=== PATIENT | female | born 1965 | race Caucasian/White ===

== ENCOUNTER 2020-04-01 10:58 | Outpatient (CLI) | payer OTHER, SELFPAY ==
--- NOTE | ~2020-04-01 | US_ITS ---
EXAMINATION: US soft tissue abdomen DATE: 04/01/2020 11:34 INDICATION: Left abdominal mass. TECHNIQUE: Multiple grayscale and Doppler ultrasound images of the abdomen were obtained. COMPARISON: CT abdomen and pelvis 11/26/2018 FINDINGS: There are 2.1 cm and 3.0 cm subcutaneous masses in left abdomen that demonstrate echogenici ty and echotexture equal to normal subcutaneous fat. IMPRESSION: 1. Subcutaneous masses in left abdomen, most likely lipomas or inflammation. Reviewed, dictated and finalized at location A.
== END 2020-04-01 10:59 | disposition home or self-care (01) ==
PROVIDERS: PCP Internal Medicine; Visit Provider Clinical Nurse Specialist
DX: R19.00 Intra-abdominal and pelvic swelling, mass and lump, unspecified site (principal)
CPT/HCPCS: 76705

== ENCOUNTER 2020-06-30 14:00 | Outpatient (CLI) | payer OTHER, SELFPAY ==
--- NOTE | ~2020-06-30 | XR_ITS ---
EXAMINATION: XR knee LT 2V DATE: 06/30/2020 14:26 INDICATION: Left knee pain. TECHNIQUE: 2 views of left knee were obtained. COMPARISON: None. FINDINGS: Bone alignment is normal. No fracture. There is mild tricompartmental osteoarthritis. There is a small knee joint effusion. IMPRESSION: 1. Mild left knee osteoarthritis. 2. Small left knee joint effusion. Reviewed, dictated and finalized at location A.
== END 2020-06-30 14:01 | disposition home or self-care (01) ==
LOC: ANHIMG 14:13
PROVIDERS: PCP Internal Medicine; Visit Provider Nurse Practitioner
DX: M25.569 Pain in unspecified knee (principal); M17.12 Unilateral primary osteoarthritis, left knee; M25.462 Effusion, left knee
CPT/HCPCS: 73560

== ENCOUNTER 2021-07-19 08:47 | Outpatient (CLI) | payer OTHER, SELFPAY ==
--- NOTE | ~2021-07-19 | MR_ITS ---
EXAMINATION: MR knee LT wo con DATE: 07/19/2021 09:47 INDICATION: Severe medial left knee pain TECHNIQUE: Magnetic resonance imaging (MRI) of the left knee was performed without intravenous contra st. Sequences included coronal PD-weighted FSE, coronal PD-weighted FS FSE, sagittal T2-weighted FSE , sagittal PD-weighted FS FSE and axial PD weighted fat saturated FSE. COMPARISON: None. FINDINGS: Medial compartment: There is a longitudinal horizontal tear extending to the inferior articular surface of the body and p osterior horn of the medial meniscus. The dorsal meniscus inferior to the tear plane at the meniscal body is subluxed inferiorly into the gutter along the medial rim of the medial tibial plateau. There is suggestion of the likely secondary radial tear along the at the meniscal body involving the cephal ad portion of the meniscus which is not subluxed. Partial-thickness chondral fissuring involving up t o 50% the cartilage thickness at the anterior weightbearing medial femoral condyle. Deeper chondral u lceration involving greater than 50% the cartilage thickness with chondral surface regularity at the central to posterior weightbearing medial femoral condyle and at the central aspect of the medial tib ial plateau. No degenerative subchondral changes. Lateral compartment: Longitudinal horizontal tear extending towards the free edge of the lateral meniscal body into the barillas perior articular surface at the junction of the anterior horn and body. Partial-thickness chondral fi ssuring involving up to 50% the cartilage thickness along the medial rim of the central weightbearing lateral femoral condyle. Partial thickness chondral ulceration with mild chondral surface regularity along the medial half of the medial tibial plateau including along the shoulder the intercondylar em inence along the juxtaposed medial side of the anterior weightbearing medial femoral condyle. Partial -thickness chondral fissuring at the posterior aspect of the lateral tibial plateau. Patellofemoral compartment: Extensive with chondral ulceration involving greater than 50% the cartilage thickness along the later al patellar facet and apical ridge and along the lateral half of the lateral trochlea with few scatte red tiny foci of subarticular edema. Less severe partial thickness chondral ulceration with chondral surface irregularity at the medial talar facet, medial trochlea and trochlear groove. Large marginal osteophytes along the medial trochlea. Ligaments and tendons: Anterior and posterior cruciate ligaments are normal. There is mild thickening of the proximal medial collateral ligament without surrounding edema consistent with mild scarring related to chronic sprai n. Mild patellar tendinopathy with small enthesophyte at its patellar insertion. Mild tendinopathy wi thout discrete tear of the distal semimembranosus tendon. There is diffuse mild fatty atrophy of the more proximal semimembranosus muscle belly. The visualized medial and lateral hamstring tendons as we ll as the iliotibial band are otherwise normal. Fluid: Small joint effusion with mild synovitis at the suprapatellar pouch. Small to moderate-sized Kelly's cyst. No loose osteochondral bodies identified. Osseous/other: Bone alignment is normal. There is some red marrow reexpansion in the metadiaphyseal regions of the f emur, tibia and fibula. No fracture or pathologic marrow replacing process. IMPRESSION: 1. Medial and lateral meniscal tears, more extensive and likely complex at the medial meniscus. 2. Mild to moderate tricompartmental osteoarthritis with medial and patellofemoral compartment predom inance. 3. Likely mild scarring likely related to chronic sprain of the proximal medial collateral ligament. 4. Mild patellar and semimembranosus tendinopathy without discrete tears. 5. Small left knee joint effusion and small to moderate s
== END 2021-07-19 08:48 | disposition home or self-care (01) ==
PROVIDERS: PCP Internal Medicine; Visit Provider Orthopaedic Surgery
DX: S83.282A Other tear of lateral meniscus, current injury, left knee, initial encounter (principal); S83.242A Other tear of medial meniscus, current injury, left knee, initial encounter; M17.12 Unilateral primary osteoarthritis, left knee; M71.22 Synovial cyst of popliteal space [Baker], left knee
CPT/HCPCS: 73721

== ENCOUNTER 2021-11-14 09:41 | Emergency (ER) | payer BC, SELFPAY ==
--- NOTE | ~2021-11-14 | XR_ITS ---
EXAMINATION: XR chest 1V portable DATE: 11/14/2021 12:24 INDICATION: COVID positive presenting with shortness of breath, cough and chest tightness TECHNIQUE: frontal view of the chest was obtained. COMPARISON: None FINDINGS: The lungs are clear with no focal airspace opacities, pulmonary edema, pleural effusion or pneumothor ax. The cardiomediastinal silhouette is normal. Moderate degenerative skeletal changes in the thoraci c spine and bilateral acromioclavicular joints. IMPRESSION: 1. No acute cardiopulmonary disease. Reviewed, dictated and finalized at location A. 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
[2021-11-14 09:43] VITALS: BP 151/62; PULSE 74; RESP 20; TEMP 36.6; O2SAT 99
[2021-11-14 11:21] VITALS: BP 139/82; O2SAT 98
[2021-11-14 11:23] VITALS: BP 139/82; PULSE 68; RESP 20; TEMP 36.7; O2SAT 98
[2021-11-14 11:31] VITALS: BP 128/70; O2SAT 96
--- NOTE | 2021-11-14 11:38 | ED.GENADULT ---
HPI - General Adult General Chief complaint: Upper Respiratory Infection Stated complaint: covid Time Seen by Provider: 11/14/21 11:37 History of Present Illness HPI narrative: Patient is a 56-year-old female who comes into the ED today complaining of chest pain and diffuse back pain. Patient reports she has been having intermittent chest pressure for the last 2 days, worse with coughing and worse with lying down. Constant diffuse back pain. Has been having fevers for the last 3 days along with a headache. Admits to a cough. She was seen in urgent care yesterday was diagnosed with pneumonia on chest x-ray, was tested for COVID-19 and that came back positive this morning. She is COVID-19 vaccinated. She received her booster dose last week. Has a history of diabetes and hypertension. Took ibuprofen about 3 hours prior to arrival because she had a fever of 102. Related Data Allergies Allergy/AdvReac Type Severity Reaction Status Date / Time metformin Allergy Unknown Unknown Verified 08/15/21 09:04 Penicillins Allergy Unknown Hives Verified 08/15/21 09:04 sitagliptin Allergy Unknown Unknown Verified 08/15/21 09:04 empagliflozin Allergy Unknown Verified 08/15/21 09:04 [From Jardiance] Review of Systems Constitutional: Constitutional: Reports as per HPI, Reports fever(s), Denies night sweats and Denies weakness Cardiovascular: Cardiovascular: Reports chest pain, Denies edema, Denies leg edema, Denies dyspnea and Denies orthopnea Respiratory: Respiratory: Denies cough and Denies dyspnea Gastrointestinal: Gastrointestinal: Denies abdominal pain, Denies constipation, Denies diarrhea, Denies nausea and Denies vomiting Musculoskeletal: Musculoskeletal: Denies abnormal gait, Reports back pain, Denies numbness and Denies tingling Comments: See HPI for back pain Neurologic: Denies Abnormal speech present, Denies abnormal gait, Denies numbness, Denies tingling and Denies weakness Psychiatric: Psychiatric: Denies homicidal ideation and Denies suicidal ideation [facility] Past Medical History Medical History Hyperlipidemia Hypertension Major depressive disorder Type 2 diabetes mellitus Surgical History Surgical History H/O lateral meniscus repair of left knee H/O: hysterectomy History of appendectomy History of hernia repair History of knee replacement Right Social History Social History (Updated 08/15/21 @ 09:09 by Merari Danielson) Social History: Caffeine- diet coke,nicholas Smoking status: Never smoker Alcohol intake: never Exam Const: General: cooperative, healthy appearing, comfortable, no acute distress, well developed, alert, awake and Physically active Orientation/consciousness: patient oriented x3 HENMT: Head: normal to inspection, normocephalic and atraumatic Ears: external ears normal General nose exam: Normal external nose present Eyes: Pupils: Equal, round and reactive pupils present EOM: EOMs intact bilaterally Neck: Neck: normal visual inspection Chest: Chest palpation & inspection: normal inspection of the chest and no tenderness Other: Tenderness palpation over midsternal aspect of chest Resp: Effort & Inspection: normal respiratory effort and able to speak in complete sentences Auscultation: clear to auscultation bilaterally Cardio: Rate: regular rate Rhythm: regular rhythm GI: Inspection: normal to inspection GI Palp: No abdominal tenderness : General: Yes no CVA tenderness Back/Spine/Pelvis: Back: no CVA tenderness Other: Tender to palpate diffusely over entire back. No overlying skin changes. Neurovascular intact throughout. Skin: General skin exam: normal color and no rashes or lesions noted Lesions: no lesions Neuro: General: patient oriented x3, no focal motor deficits and CN's II-XI intact bilaterally Cranial nerves: Yes Equal, round and reactive pupils present Spee
--- NOTE | 2021-11-14 12:06 | ECG_ITS ---
Rate 66 LA 179 QRSd 84 QT 427 QTc 449 --[place]-- P 0 QRS -18 T 30 SINUS RHYTHM NORMAL ECG Electronically Signed On 11-14-2021 13:43:36 MEDICAL COLLECTOR by Mor AN
[2021-11-14 12:33] LABS: Basophils Percent Auto 0.6 % (0.2-1.2); Eosinophils Percent Auto 0.8 % (0-4.4); Hematocrit 37.1 % (37.0-47.0); Hemoglobin 12.6 g/dL (12.0-15.0); Immature Granulocyte Absolute 0.06 K/mm3 (0.00-0.031); Immature Granulocyte Percent A 1.1 % (0-0.5); Lymphocytes Absolute Auto 1.87 K/mm3 (0.9-3.2); Lymphocytes Percent Auto 35.8 % (18.3-44.2); Mean Corpuscular Hemoglobin 28.7 pg (26-34); Mean Corpuscular Volume 84.5 fl (80-100); Mean Platelet Volume 9.2 fl (7.4-10.4); Monocytes Absolute Auto 0.6 K/mm3 (0.1-0.6); Monocytes Percent Auto 11.9 % (2.6-8.5); Neutrophils Absolute Auto 2.6 K/mm3 (1.3-6.7); Neutrophils Percent Auto 49.8 % (45.5-73.1); Platelet Count Result 235 k/mm3 (150-375); Red Blood Count 4.39 M/mm3 (4.2-5.4); Red Cell Distribution Width 13.1 % (11.5-14.5); White Blood Count 5.2 K/mm3 (4.5-10.0)
[2021-11-14] MEDS: ACETAMINOPHEN 500 MG TABLET 1000 MG PO (12:37)
[2021-11-14 12:43] LABS: Alanine Aminotransferase 44 U/L (4-35); Albumin Level 4.2 g/dL (3.5-5.1); Alkaline Phosphatase 74 U/L (38-126); Anion Gap 9 mmol/L (8-16); Aspartate Amino Transferase 34 U/L (14-36); Bilirubin,Total 0.5 mg/dL (0.2-1.3); Blood Urea Nitrogen 8 mg/dL (7-17); Calcium 9.2 mg/dL (8.4-10.2); Carbon Dioxide 26 mmol/L (22-30); Chloride 101 mmol/L (98-107); Estimated CRCL calculation 211 ml/min; Estimated Glomerular Filt Rate > 60; Glucose 204 mg/dL (65-110); Potassium 3.6 mmol/L (3.4-5.0); Sodium 136 mmol/L (137-145)
[2021-11-14 12:54] LABS: Troponin I < 0.012 ng/mL (0.000-0.034)
[2021-11-14 13:10] VITALS: PULSE 66; RESP 18; O2SAT 98
[2021-11-14 13:31] VITALS: BP 131/70; PULSE 68; RESP 18; TEMP 36.7; O2SAT 97
== END 2021-11-14 13:32 | disposition home or self-care (01) ==
PROVIDERS: Physician Assistant Medical; Emergency Provider Emergency Medicine; PCP Internal Medicine
DX: U07.1 COVID-19 (principal); R07.89 Other chest pain; E11.9 Type 2 diabetes mellitus without complications; I10 Essential (primary) hypertension; E78.5 Hyperlipidemia, unspecified; Z96.651 Presence of right artificial knee joint; Z79.4 Long term (current) use of insulin; Z79.84 Long term (current) use of oral hypoglycemic drugs
CPT/HCPCS: 36415; 71045; 80053; 84484; 85025; 93005; 99284; A9270

== ENCOUNTER 2022-05-15 17:36 | Emergency (ER) | payer OTHER, BC, SELFPAY ==
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
[2022-05-15 17:36] VITALS: BP 166/103; PULSE 86; RESP 16; TEMP 36.8; O2SAT 99
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
[2022-05-15] MEDS: ONDANSETRON INJ 4 MG/2 ML VIAL IV PUSH (19:12)
[2022-05-15] MEDS: HYDROmorphone HCL INJ (*CRX) 1 MG/ML SYR 0.5 MG IV PUSH (19:14)
[2022-05-15 19:30] VITALS: BP 159/78; PULSE 75; RESP 18; O2SAT 96
== END 2022-05-15 19:50 | disposition short-term general hospital (02) ==
PROVIDERS: Emergency Provider Emergency Medicine; PCP Internal Medicine
DX: S29.9XXA Unspecified injury of thorax, initial encounter (principal); S39.91XA Unspecified injury of abdomen, initial encounter; E78.5 Hyperlipidemia, unspecified; I10 Essential (primary) hypertension; E11.9 Type 2 diabetes mellitus without complications; E66.9 Obesity, unspecified; Z68.34 Body mass index [BMI] 34.0-34.9, adult; Z96.651 Presence of right artificial knee joint; Z79.4 Long term (current) use of insulin; Z79.84 Long term (current) use of oral hypoglycemic drugs; Z79.899 Other long term (current) drug therapy; V43.52XA Car driver injured in collision with other type car in traffic accident, initial encounter
CPT/HCPCS: 71045; 72170; 96374; 96375; 99285; J1170; J2405; L0140

== ENCOUNTER 2022-11-13 13:32 | Outpatient (CLI) | payer BC, SELFPAY ==
[2022-11-13 14:09] LABS: Kit Draw Collected
== END 2022-11-13 13:33 | disposition home or self-care (01) ==
LOC: ANHGOSHLAB 13:34
PROVIDERS: PCP Internal Medicine; Visit Provider Nurse Practitioner
DX: E11.9 Type 2 diabetes mellitus without complications (principal); I10 Essential (primary) hypertension; E55.9 Vitamin D deficiency, unspecified
CPT/HCPCS: 36415

== ENCOUNTER 2022-11-13 14:23 | Outpatient (CLI) | payer BC, SELFPAY ==
--- NOTE | ~2022-11-13 | CT_ITS ---
EXAMINATION: CT knee LT w con DATE: 11/13/2022 15:01 INDICATION: Chronic swelling and severe pain TECHNIQUE: Computed tomography (CT) of the left knee was performed with 100 mL Omnipaque 350 intraven ous contrast. Automated exposure control and iterative reconstruction technique were employed. The do se-length product was 602.93 mGy-cm. COMPARISON: None, prior examinations were prior to arthroplasty. FINDINGS: Hardware: Left knee total arthroplasty, no hardware fracture or perihardware lucency. Bones: The included osseous structures are within normal limits. There are no erosive or destructive bony lesions. No osseous fracture. Soft Tissues: The soft tissues appear within normal limits. No evidence of mass or fluid collection. Fluid: Moderate volume fluid within the suprapatellar recess, with irregular thickening and enhanceme nt of the synovium. IMPRESSION: Moderate volume knee joint effusion with synovitis. The sterility of this fluid cannot be assessed by imaging alone. No acute osseous finding. No radiographic evidence of hardware-related complication. Reviewed, dictated and finalized at location K. EDMAN/LABORER
[2022-11-13 15:00] LABS: Estimated Glomerular Filt Rate > 60
== END 2022-11-13 14:24 | disposition home or self-care (01) ==
PROVIDERS: PCP Internal Medicine; Visit Provider Internal Medicine
DX: M25.562 Pain in left knee (principal); M25.462 Effusion, left knee; Z96.652 Presence of left artificial knee joint
CPT/HCPCS: 73701; Q9967

== ENCOUNTER 2022-12-05 11:58 | Outpatient (CLI) | payer BC, SELFPAY ==
--- NOTE | ~2022-12-05 | US_ITS ---
EXAMINATION: US venous doppler [facility] DATE: 12/05/2022 12:42 INDICATION: Left lower limb pain TECHNIQUE: Hassan scale images without and with compression and Doppler images of the left lower extrem ity veins were obtained. COMPARISON: None FINDINGS: The left common femoral vein, profunda femoral vein, femoral vein, popliteal vein, peroneal trunk, posterior tibial veins, and greater saphenous vein are patent. IMPRESSION: 1. Patent left lower extremity veins. No evidence of deep venous thrombosis. Reviewed, dictated and finalized at location L. CHECKER
== END 2022-12-05 11:59 | disposition home or self-care (01) ==
PROVIDERS: PCP Internal Medicine; Visit Provider Internal Medicine
DX: M79.605 Pain in left leg (principal); M79.89 Other specified soft tissue disorders; Z96.652 Presence of left artificial knee joint
CPT/HCPCS: 93971

== ENCOUNTER 2023-03-29 11:48 | Outpatient (CLI) | payer OTHER, SELFPAY ==
--- NOTE | ~2023-03-29 | MMUS_ITS ---
EXAMINATION: MM diagnostic shoaib BI w maryam, US breast RT limited HISTORY: Upper inner quadrant right breast lump and right axillary pain TECHNIQUE: Bilateral full field and right spot ML, MLO and CC 3-D tomosynthesis images were performed and synthetic 2-D images were generated. CAD analysis was submitted and interpreted. High resolution upper inner quadrant right breast and right axillary ultrasound was performed. COMPARISON: 10/04/2016 bilateral diagnostic mammogram BREAST PARENCHYMAL COMPOSITION: The breasts are almost entirely fatty. FINDINGS: MAMMOGRAPHIC FINDINGS: No suspicious mass or architectural distortion, malignant calcification, skin thickening or retractio n or significant new or developing density is detected. Small stable benign-appearing intramammary ly mph node in the very posterior upper outer right breast. There is adipose tissue in the region of complaint of lump in the upper inner quadrant of the right b reast. ULTRASOUND: Right breast 1:00 10 cm from nipple: There is a parallel circumscribed heterogeneous mixed isodense a nd primarily hyperdense benign-appearing lesion without internal vascularity or posterior shadowing a t 1:00 10 cm from the nipple. There is some through-transmission. Differential diagnosis includes lip carlitos, less likely hamartoma. No suspicious mass or shadowing is detected in the right axilla. IMPRESSION: 1. Benign findings 2. Routine annual mammographic screening is recommended BI-RADS Category 2: Benign finding(s). Reviewed, dictated and finalized at location A. IMPRESSION: 1. Benign findings 2. Routine annual mammographic screening is recommended BI-RADS Category 2: Benign finding(s).
== END 2023-03-29 11:49 | disposition home or self-care (01) ==
PROVIDERS: PCP Internal Medicine; Visit Provider Nurse Practitioner
DX: N63.0 Unspecified lump in unspecified breast (principal)
CPT/HCPCS: 76642; 77062; 77066; G0279

== ENCOUNTER 2023-05-23 09:13 | Outpatient (CLI) | payer OTHER, SELFPAY ==
[2023-05-23 10:04] LABS: Anion Gap 5 mmol/L (8-16); Blood Urea Nitrogen 10 mg/dL (7-17); Calcium 9.4 mg/dL (8.4-10.2); Carbon Dioxide 32 mmol/L (22-30); Chloride 100 mmol/L (98-107); Estimated Glomerular Filt Rate > 60; Glucose 171 mg/dL (65-110); Potassium 4.3 mmol/L (3.4-5.0); Sodium 137 mmol/L (137-145)
== END 2023-05-23 09:14 | disposition home or self-care (01) ==
PROVIDERS: Anesthesiology; PCP Internal Medicine; Visit Provider Surgery
DX: E11.9 Type 2 diabetes mellitus without complications (principal)
CPT/HCPCS: 36415; 80048

== ENCOUNTER 2023-05-28 00:25 | Day surgery (SDC) | payer OTHER, SELFPAY ==
[2023-05-21 12:48] VITALS: BMI 34.5
--- NOTE | 2023-05-21 12:49 | SUR.PREOP ---
Report to the Outpatient Waiting Room, entrance under the green pavilion located off [facility], at time _1130 on date _05/28/23 . Planned Procedure Time: _1.30pm . Time changes happen often and if your time is changed the preop area will call you the afternoon before. - You and your visitor will be asked to self-screen and do not enter if you have any COVID symptoms. - A mask is optional within the hospital at this time. Patients may have clear liquids (water, carbonated beverages, clear teas, apple juice) until 3 hours prior to surgery with a maximum of 20 ounces. - No food from midnight until time of surgery - Infants may have breast milk until 4 hours before surgery, infant formula 6 hours prior to surgery. - Children will be allowed to drink immediately following surgery. If applicable, please bring a bottle or sippy cup to assist with drinking. Juice, water, soda, and popsicles are readily available. For infants on formula, please bring formula the day of surgery. Pacifiers are allowed. Take the following medications with a SIP of water the morning of surgery: __LABETOLOL,SERTALINE DO NOT STOP ANY OF YOUR OTHER PRESCRIPTION MEDICATIONS PRIOR TO SURGERY ?EXCEPT THE FOLLOWING Medications to discontinue per physician __N/A Date to take last dose__N/A Please no make-up, nail turkmen, hairspray, perfume, deodorant, or body powder the day of surgery. No jewelry (including any body piercings) or valuables the day of surgery, leave them at home. Please take a shower or bath the night before, or the morning of, surgery with an antibacterial soap. Wear comfortable, loose fitting clothing. Children are encouraged to wear pajamas. - Jewelry must be removed prior to entering the operating room. Rings and piercings that are not removed may be cut off. - The hospital will not accept responsibility for valuables. - Please leave all valuables, including medications, at home the day of surgery. If you are going home after surgery, a licensed city route driver must drive you home. - NO public transportation without another adult if you receive anesthesia. - We recommend that an adult stay with you for 24 hours following discharge. - We also recommend that you do not drive, make important decision, drink alcoholic beverages, or take any drugs that were not prescribed by your health care provider for at least 24 hours after your discharge time. For Pediatric surgeries, we recommend two adults accompany the child home. Follow any additional instructions given to you from your surgeon. If you or anyone in your household have experienced Covid symptoms in the past week, please notify your surgeon or the nurse liaison at the phone number below for possible testing. Telephone instructions given to _DORIAN YU and asked if any additional questions and then verbalized understanding. Patient advised to call surgeon office or pre surgery nurse liaison [phone] if any additional questions.
[2023-05-28] VITALS (10 sets, daily range): BP systolic 95–158; BP diastolic 53–84; PULSE 43–62; RESP 10–18; TEMP 36.6–36.8; O2SAT 92–100
--- NOTE | 2023-05-28 09:11 | WPDANESEPPF ---
Anes - Initial Pre Proc Eval Procedure: Operation Date: 05/28/23 13:30 Proposed Procedures p Excision Right Breast Cyst - Pee Bundy DO Date/Time: 05/28/23 09:11 Surgeon: Pee Bundy DO Pre Op Diagnosis: right breast cyst 1.5cm Patient Data Age: 58 Gender: F Height: 1.7 m Weight: 100 kg Allergies Allergy/AdvReac Type Severity Reaction Status Date / Time metformin Allergy Intermediate Other Verified 05/28/23 11:41 Penicillins Allergy Intermediate Hives Verified 05/28/23 11:41 sitagliptin Allergy Intermediate Rash Verified 05/28/23 11:41 empagliflozin AdvReac Mild Diarrhea Verified 05/28/23 11:44 [From Jardiance] Home Medications Medication Instructions Recorded Confirmed Type hydrochlorothiazide 25 mg tablet See Rx Instructions .Route 05/18/22 05/28/23 Rx .COMPLEX #90 tabs glimepiride 4 mg tablet 4 mg PO BID #180 tabs 01/12/23 05/28/23 Rx labetalol 100 mg tablet See Rx Instructions .Route 01/12/23 05/28/23 Rx .COMPLEX #180 tabs lisinopril 40 mg tablet 40 mg PO DAILY #90 tabs 01/12/23 05/28/23 Rx simvastatin 40 mg tablet See Rx Instructions .Route 01/12/23 05/28/23 Rx .COMPLEX #90 tabs dulaglutide 0.75 mg/0.5 mL 0.75 mg (0.5 mL) subcut WEEKLY #2 03/02/23 05/28/23 Rx subcutaneous pen injector mL (Trulicity) sertraline 100 mg tablet See Rx Instructions .Route 03/02/23 05/28/23 Rx .COMPLEX #90 tabs Patient hx anesthesia problems: none Family hx anesthesia problems: none Results Review: All pre-operative results and documents have been reviewed as part of the pre-operative evaluation. [facility] Past Medical History Medical History Hyperlipidemia Hypertension Major depressive disorder Obesity Type 2 diabetes mellitus Surgical History Surgical History H/O lateral meniscus repair of left knee H/O: hysterectomy History of appendectomy History of hernia repair History of knee replacement Right History of total left knee replacement Social History Social History Social History: Caffeine- diet nicholas sloan Smoking status: Never smoker Alcohol intake: never Lack of Transportation: No Lack of Food: Never True Current Housing: I Have Housing Concerned About Future Housing: No Difficulty Paying Gas/Electric Bills: No Difficulty Paying for Meds: No Currently Unemployed: No Education: High School Diploma/GED Difficulty w/ Childcare or Family Care: No Living arrangements: with family Spiritual care concerns: No Anes - Eval Final PreProcedure Day of Procedure 05/28/23 09:11 Patient weight: obese Heart: regular rate and rhythm Lungs: clear to auscultation Airway: Mallampati scale class II Neurological: alert and oriented Last oral intake: >/= 8 hours ASA classification: III Emergent: no Anesthetic plan: proceed Anesthesia type and monitoring: general GIVS and standard monitoring Results Review: All pre-operative results and documents have been reviewed as part of the pre-operative evaluation. Informed Consent: The patient's anesthetic plan and its attendant risks and benefits were discussed with the patient/family/POA. Questions were solicited and answers provided to the satisfaction of the patient/family/POA.
[2023-05-28] MEDS: ACETAMINOPHEN 500 MG TABLET 1000 MG PO (12:19)
[2023-05-28] MEDS: LACTATED RINGERS 1,000 ML 30 ML IV CONT ×2 (12:19→13:45)
[2023-05-28] MEDS: KETOROLAC 15 MG/ML VIAL (*BKC) IV PUSH (12:21)
[2023-05-28 12:28] LABS: Glucose Point of Care 171 mg/dl (65-105)
--- NOTE | 2023-05-28 12:52 | WPDHPUPDATE1 ---
History and Physical Update Update Date/Time: 05/28/23 12:52 History and Physical has been reviewed, including an updated exam of the patient. There are NO changes in the patient's condition. Risks, benefits, and alternatives have been discussed and questions answered. Patient agrees to proceed with procedure.
--- NOTE | 2023-05-28 13:34 | W.PM.PROC2 ---
Procedure Note - Detailed Date of Procedure 05/28/23 Pre-op Diagnosis right breast mass Post-op Diagnosis Same Procedure Performed Excisional biopsy of 1.5 cm right breast mass Surgeon Pee Bundy, DO Anesthesia General and Local (0.5% bupivacaine with epinephrine) Indications This is a 58-year-old woman who presented with a painful right breast mass. The patient 1st noticed this a couple months ago. It was causing some burning across her upper chest and into her right axilla. She was sent for mammogram and ultrasound which came back as BI-RADS category 2 benign findings. The mass was mobile and firm and was likely a lipoma or cyst. I discussed treatment options with the patient and decision was made to proceed with excisional biopsy of the right breast mass. Findings Excisional biopsy was performed of the right breast mass in the upper inner quadrant. The mass was noted to have a lipomatous consistency. No other surrounding abnormalities were noted. The mass measured about 1.5 cm in diameter. It was completely excised and sent to the lab for pathology. Description of Procedure Procedure as well as risks, benefits, and alternatives were discussed with the patient. Written consent was obtained and placed in chart prior to procedure. Patient was brought back to surgical suite. She was placed supine on operating table. Time-out was done to confirm patient and procedure. She was intubated by the anesthesia department. Her right breast area was prepped and draped in sterile fashion using chlorhexidine prep. 0.5% bupivacaine with epinephrine was infiltrated locally around the mass. A 2 cm transverse incision was made directly over the mass using a 15 blade scalpel. Electrocautery was used for hemostasis and for dissection through the subcutaneous tissue. The mass was encountered and carefully dissected free from the surrounding tissue using electrocautery. It was completely excised and sent to the lab for pathology. The wound bed was then inspected. Hemostasis appeared adequate and no other masses were identified. The deep dermis was then reapproximated using 3-0 Vicryl inverted interrupted sutures. Skin was approximated using 4 Monocryl running subcuticular suture. Exofin glue was then applied on top. The patient was then awakened from anesthesia, extubated, and transferred to recovery. Estimated Blood Loss 5 Pathology Yes (Right upper inner quadrant breast mass) Complications No immediate complications Condition Stable Disposition Same day [facility] Billing Surgery - Charge Forward: Surgery Billing
[2023-05-28 13:46] LABS: Glucose Point of Care 147 mg/dl (65-105)
[2023-05-28] MEDS: fentaNYL CITRATE INJ (*CRX) 100 MCG/2 ML VIAL 25 MCG IV PUSH (14:27)
[2023-05-28] MEDS: oxyCODONE HCL (*CRX) 5 MG TAB IR PO (15:00)
== END 2023-05-28 15:55 | disposition home or self-care (01) ==
PROVIDERS: PCP Internal Medicine; Visit Provider Surgery
PROC: (CPT 19120; principal; 2023-05-28 13:30)
DX: D17.1 Benign lipomatous neoplasm of skin and subcutaneous tissue of trunk (principal); I10 Essential (primary) hypertension; E78.5 Hyperlipidemia, unspecified; E11.9 Type 2 diabetes mellitus without complications; F32.9 Major depressive disorder, single episode, unspecified; E66.9 Obesity, unspecified; Z68.35 Body mass index [BMI] 35.0-35.9, adult; Z79.84 Long term (current) use of oral hypoglycemic drugs; Z79.899 Other long term (current) drug therapy
CPT/HCPCS: 19120; 82948; 88304; 88305; A9270; J1100; J1885; J2250; J2405; J2704; J3010; J7120

== ENCOUNTER 2023-09-13 10:42 | Emergency (ER) | payer OTHER, SELFPAY ==
[2023-09-13 10:45] VITALS: BP 157/67; PULSE 82; RESP 16; TEMP 36.7; O2SAT 97
[2023-09-13 11:39] LABS: Basophils Percent Auto 0.3 % (0.2-1.2); Eosinophils Absolute Auto 0.2 K/mm3 (0-0.3); Hematocrit 43.8 % (37.0-47.0); Hemoglobin 14.4 g/dL (12.0-15.0); Immature Granulocyte Absolute 0.06 K/mm3 (0.00-0.031); Immature Granulocyte Percent A 0.7 % (0-0.5); Lymphocytes Absolute Auto 0.73 K/mm3 (0.9-3.2); Lymphocytes Percent Auto 8.1 % (18.3-44.2); Mean Corpuscular HGB Conc 32.9 g/dl (32-36); Mean Corpuscular Hemoglobin 27.1 pg (26-34); Mean Corpuscular Volume 82.5 fl (80-100); Mean Platelet Volume 9.4 fl (7.4-10.4); Monocytes Absolute Auto 0.6 K/mm3 (0.1-0.6); Monocytes Percent Auto 6.7 % (2.6-8.5); Neutrophils Absolute Auto 7.4 K/mm3 (1.3-6.7); Neutrophils Percent Auto 82.2 % (45.5-73.1); Platelet Count Result 308 k/mm3 (150-375); Red Blood Count 5.31 M/mm3 (4.2-5.4); Red Cell Distribution Width 13.8 % (11.5-14.5)
[2023-09-13 11:45] LABS: Appearance Urine Cloudy (Clear); Bacteria Urine 1+ /hpf; Bilirubin Urine Negative (Negative); Blood Urine Negative (Negative); Color Urine Yellow (Yellow); Glucose Urine UA Negative (Negative); Ketones Urine Negative (Negative); Leukocyte Esterase Ur 2+ LEU/UL (Negative); Nitrate Urine Negative (Negative); Non Pathogenic Casts 0-2; Protein Urine 1+ mg/dL (Negative); RBC Urine 0-2 /hpf (0-2); Specific Grav Ur 1.026 (1.001-1.035); Squamous Epithelial Cell Urine Many /hpf (Few); WBC Urine 21-50 /hpf
[2023-09-13 11:49] LABS: Alanine Aminotransferase 25 U/L (6-35); Albumin Level 4.6 g/dL (3.5-5.1); Alkaline Phosphatase 87 U/L (38-126); Anion Gap 11 mmol/L (8-16); Aspartate Amino Transferase 17 U/L (14-36); Bilirubin,Total 1.2 mg/dL (0.2-1.3); Blood Urea Nitrogen 14 mg/dL (7-17); Calcium 9.4 mg/dL (8.4-10.2); Carbon Dioxide 26 mmol/L (22-30); Chloride 100 mmol/L (98-107); Estimated CRCL calculation 156 ml/min; Estimated Glomerular Filt Rate > 60; Glucose 266 mg/dL (65-110); Lipase 88 U/L (23-300); Potassium 3.7 mmol/L (3.4-5.0); Sodium 137 mmol/L (137-145)
[2023-09-13 11:52] LABS: Add Urine Microscopic? YES
--- NOTE | 2023-09-13 12:22 | ED.GENADULT ---
HPI - General Adult General Chief complaint: Nausea/Vomiting/Diarrhea Stated complaint: N/V/D Time Seen by Provider: 09/13/23 11:23 Source: patient Mode of arrival: ambulatory Limitations: no limitations History of Present Illness HPI narrative: This is a 58-year-old female who presents to the ED with chief complaint of nausea vomiting x3 days. Reports that she had an episode of anaphylaxis on Sunday acquired epinephrine at urgent care. Since then she states she has had multiple episodes of vomiting and diarrhea with vomiting worse last night. Reports it is difficult to keep food down but she is able to keep water down if she sips. states she only has abdominal cramping / pain whenever she has the episodes of diarrhea. Denies fevers, chills, GI bleeding, urinary complaints. Related Data Allergies Allergy/AdvReac Type Severity Reaction Status Date / Time metformin Allergy Intermediate Other Verified 06/08/23 09:07 Penicillins Allergy Intermediate Hives Verified 06/08/23 09:07 sitagliptin Allergy Intermediate Rash Verified 06/08/23 09:07 pistachio nut Allergy Anaphylaxis Verified 09/13/23 10:43 empagliflozin AdvReac Mild Diarrhea Verified 06/08/23 09:07 [From Jardiance] Review of Systems Review of Systems: All systems as dictated in [facility] Past Medical History Medical History (Updated 09/13/23 @ 13:37 by Floyd Jackson PA-C) Hyperlipidemia Hypertension Major depressive disorder Obesity Type 2 diabetes mellitus Surgical History Surgical History (Updated 06/08/23 @ 09:06 by DEBRA Nguyen) H/O excision of dermoid cyst exc 1.5cm rt breast cyst performed 05/28/23 H/O lateral meniscus repair of left knee H/O: hysterectomy History of appendectomy History of hernia repair History of knee replacement Right History of total left knee replacement Social History Social History Social History: Caffeine- diet nicholas sloan Smoking status: Never smoker Alcohol intake: never Lack of Transportation: No Lack of Food: Never True Current Housing: I Have Housing Concerned About Future Housing: No Difficulty Paying Gas/Electric Bills: No Difficulty Paying for Meds: No Currently Unemployed: No Education: High School Diploma/GED Difficulty w/ Childcare or Family Care: No Living arrangements: with family Spiritual care concerns: No Exam Narrative: GENERAL: Well-appearing, well-nourished, and in no acute distress. HEAD: Normocephalic, atraumatic. EYES: PERRLA and EOMI. ENT: Nares clear, no rhinorrhea or epistaxis. Mucous membranes moist. Oropharynx without tonsillar hypertrophy exudate or other lesions. NECK: Supple. No adenopathy or masses. CHEST: No respiratory distress. Clear to auscultation. No wheezes rales or rhonchi HEART: Regular rate and rhythm. No murmur heard. Normal peripheral pulses. ABDOMEN: Soft, nontender, nondistended, normal active bowel sounds. Negative flank tenderness bilaterally. MSK: Normal range of motion. No edema. SKIN: Warm, dry, no rash. NEURO: Alert and oriented x3. No focal deficits. PSYCH: Normal mood and affect. Course Vital Signs Vital signs: Vital Signs Temperature 98.0 F 09/13/23 10:45 Pulse Rate 82 09/13/23 10:45 Respiratory Rate 16 09/13/23 10:45 Blood Pressure 157/67 H 09/13/23 10:45 Pulse Oximetry 97 09/13/23 10:45 Oxygen Delivery Room Air 09/13/23 10:45 Temperature 98.0 F 09/13/23 10:45 Pulse Rate 68 09/13/23 13:49 Respiratory Rate 18 09/13/23 13:49 Blood Pressure 145/70 H 09/13/23 13:49 Pulse Oximetry 97 09/13/23 13:49 Oxygen Delivery Room Air 09/13/23 10:45 Medical Decision Making [facility] Narrative Medical decision making narrative: This is a 58-year-old female who presents to the ED with chief complaint of nausea, vomiting and diarrhea for the past few days. Vitals are normal. She does not have abdomin
[2023-09-13 13:49] VITALS: BP 145/70; PULSE 68; RESP 18; O2SAT 97
== END 2023-09-13 13:50 | disposition home or self-care (01) ==
PROVIDERS: Student in an Organized Health Care Education/Training Program; Emergency Provider Physician Assistant; PCP Internal Medicine
DX: K52.9 Noninfective gastroenteritis and colitis, unspecified (principal); I10 Essential (primary) hypertension; E78.5 Hyperlipidemia, unspecified; E11.9 Type 2 diabetes mellitus without complications; E66.9 Obesity, unspecified; Z68.35 Body mass index [BMI] 35.0-35.9, adult; Z90.710 Acquired absence of both cervix and uterus; Z96.653 Presence of artificial knee joint, bilateral; Z79.85 Long-term (current) use of injectable non-insulin antidiabetic drugs; Z79.84 Long term (current) use of oral hypoglycemic drugs
CPT/HCPCS: 36415; 80053; 81001; 83690; 85025; 87086; 99283

== ENCOUNTER 2023-11-08 10:40 | Outpatient (CLI) | payer OTHER, SELFPAY ==
--- NOTE | ~2023-11-08 | CT_ITS ---
EXAMINATION: CT abdomen pelvis wo con DATE: 11/08/2023 11:16 INDICATION: Right flank pain for one week. Dysuria. Chills. TECHNIQUE: Computed tomography (CT) of the abdomen and pelvis was performed without intravenous contr ast. Automated exposure control and iterative reconstruction technique were employed. Exam dose: 122 5.69 mGy-cm total exam DLP. COMPARISON: 11/26/2018 CT abdomen pelvis FINDINGS: There is discoid atelectasis or scarring at the base of the middle lobe. The lung bases are otherwise clear of infiltrate or consolidation. Normal heart size. Trace pericardial fluid. No pleural effusion. There is some soft tissue thickening of the distal esophagus which may be due to esophagitis. There are multiple small stones in the dependent aspect of the gallbladder. No gallbladder wall thick ening or pericholecystic fluid or fat stranding. No bile duct or pancreatic duct dilatation. There ar e several pancreatic calcifications which may indicate mild chronic pancreatitis. No hepatic surface nodularity or apparent hepatic, splenic or pancreatic space-occupying mass lesion is evident on this limited noncontrast examination. The adrenal glands are stable since 11/26/2018. Questionable 1.3 cm hypoattenuating lesion of the lateral mid right kidney. Consider CT with IV contr ast material for more definitive evaluation for visceral space-occupying mass lesions. No urinary tract calculus or hydroureteronephrosis. The urinary bladder is unremarkable. Status post hysterectomy. Normal caliber of the abdominal aorta. No intraperitoneal or retroperitoneal or pelvic mass lesion or adenopathy or ascites. No bowel obstruction, bowel wall thickening, pneumatosis or intraperitoneal free air is detected. No suspicious osteolytic or osteoblastic lesions. There is degenerative change at the apophyseal join ts of the lumbar spine with associated grade 1 anterolisthesis at L4-5. Degenerative spurring of the lower thoracic and lumbar spine. Bilateral hip osteoarthritis. IMPRESSION: No urinary tract calculus or hydroureteronephrosis Questionable 1.3 cm hypoattenuating lesion of the lateral mid right kidney; consider CT examination w ith IV contrast material for more definitive evaluation Cholelithiasis Mild chronic pancreatitis is suggested Reviewed, dictated and finalized at [facility]. Reviewed, dictated and finalized at [facility]. 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
== END 2023-11-08 10:41 | disposition home or self-care (01) ==
PROVIDERS: PCP Internal Medicine; Visit Provider Clinical Nurse Specialist
DX: R10.9 Unspecified abdominal pain (principal); R30.0 Dysuria; N28.9 Disorder of kidney and ureter, unspecified; K80.20 Calculus of gallbladder without cholecystitis without obstruction
CPT/HCPCS: 74176

== ENCOUNTER 2023-11-08 13:32 | Emergency (ER) | payer OTHER, SELFPAY ==
--- NOTE | ~2023-11-08 | CT_ITS ---
EXAMINATION: CT abdomen pelvis w con DATE: 11/08/2023 20:04 INDICATION: Right flank pain TECHNIQUE: Computed tomography (CT) of the abdomen and pelvis was performed with 100 mL Omnipaque-350 intravenous contrast. Automated exposure control and iterative reconstruction technique were employe d. The dose-length product was 1346.96 mGy-cm. COMPARISON: Noncontrast CT dated 11/08/2023 FINDINGS: Linear discoid atelectasis/scarring in the right middle lobe. No pleural effusion. Heart size is norm al. Minimal pericardial effusion. Again seen is some mild wall thickening the distal esophagus which could be due to reflux or esophagitis. There are few small gallstones in the dependent aspect of the normal gallbladder. Liver, and pancreas and left adrenal glands are normal. 1.5 similar right adrenal adenoma with low attenuation of 7HU on prior noncontrast CT. Nonspecific splenomegaly measuring 15 c m in length which may be related to body habitus. There are few bilateral nonenhancing renal cysts co uple which including the lesion identified on prior CT demonstrating slightly greater than simple flu id attenuation most likely either hemorrhagic or proteinaceous. 10 x 9 x 2 cm lenticular lipoma in th e abdominal wall along the right inferior costal margin. Postoperative change of prior appendectomy w ith a few surgical clips at the end of a short appendiceal stump. No surrounding inflammatory strandi ng to suggest acute appendicitis. Bowels are otherwise unremarkable. Bladder is normal. The uterus an d bilateral ovaries are not identified and have likely been surgically resected. No free intraperiton eal gas or fluid. No pathologically enlarged abdominal or pelvic lymphadenopathy. Mild lumbar and low er thoracic spondylosis. Mild left and mild to moderate right hip osteoarthritis. IMPRESSION: 1. Lesion of concern at the lateral mid right kidney corresponds to one of several bilateral small no nenhancing renal cysts. 2. Cholelithiasis. Reviewed, dictated and finalized at [facility]. L HANGER IMPRESSION: 1. Lesion of concern at the lateral mid right kidney corresponds to one of kurt ral bilateral small nonenhancing renal cysts. 2. Cholelithiasis.
[2023-11-08 14:12] VITALS: BP 148/72; PULSE 73; RESP 16; TEMP 36.8; O2SAT 95
[2023-11-08 14:26] LABS: Glucose Point of Care 343 mg/dl (65-105)
[2023-11-08 15:08] LABS: Basophils Percent Auto 0.6 % (0.2-1.2); Eosinophils Absolute Auto 0.1 K/mm3 (0-0.3); Eosinophils Percent Auto 1.5 % (0-4.4); Hematocrit 44.8 % (37.0-47.0); Hemoglobin 14.7 g/dL (12.0-15.0); Immature Granulocyte Absolute 0.07 K/mm3 (0.00-0.031); Lymphocytes Absolute Auto 1.98 K/mm3 (0.9-3.2); Lymphocytes Percent Auto 28.8 % (18.3-44.2); Mean Corpuscular HGB Conc 32.8 g/dl (32-36); Mean Corpuscular Hemoglobin 28.1 pg (26-34); Mean Corpuscular Volume 85.5 fl (80-100); Mean Platelet Volume 9.6 fl (7.4-10.4); Monocytes Absolute Auto 0.5 K/mm3 (0.1-0.6); Monocytes Percent Auto 6.5 % (2.6-8.5); Neutrophils Absolute Auto 4.2 K/mm3 (1.3-6.7); Neutrophils Percent Auto 61.6 % (45.5-73.1); Platelet Count Result 293 k/mm3 (150-375); Red Blood Count 5.24 M/mm3 (4.2-5.4); Red Cell Distribution Width 13.4 % (11.5-14.5); White Blood Count 6.9 K/mm3 (4.5-10.0)
[2023-11-08 15:20] LABS: Alanine Aminotransferase 28 U/L (6-35); Albumin Level 4.3 g/dL (3.5-5.1); Alkaline Phosphatase 91 U/L (38-126); Anion Gap 8 mmol/L (8-16); Aspartate Amino Transferase 24 U/L (14-36); Bilirubin,Total 0.8 mg/dL (0.2-1.3); Blood Urea Nitrogen 10 mg/dL (7-17); Calcium 9.5 mg/dL (8.4-10.2); Carbon Dioxide 28 mmol/L (22-30); Chloride 100 mmol/L (98-107); Estimated CRCL calculation 156 ml/min; Estimated Glomerular Filt Rate > 60; Glucose 320 mg/dL (65-110); Lipase 116 U/L (23-300); Potassium 4.2 mmol/L (3.4-5.0); Sodium 136 mmol/L (137-145)
[2023-11-08 15:40] LABS: Appearance Urine Clear (Clear); Bacteria Urine 1+ /hpf; Bilirubin Urine Negative (Negative); Blood Urine Negative (Negative); Color Urine Yellow (Yellow); Glucose Urine UA 3+ mg/dL (Negative); Ketones Urine Negative (Negative); Leukocyte Esterase Ur Trace LEU/UL (Negative); Need Manual Microscopic Reviewed; Nitrate Urine Negative (Negative); Non Pathogenic Casts 0-2; Protein Urine Negative (Negative); Squamous Epithelial Cell Urine Moderate /hpf (Few); Urobilinogen Urine 0.2 mg/dL (<2.0); WBC Urine 21-50 /hpf
[2023-11-08 16:15] VITALS: BP 140/78; PULSE 72; RESP 20; O2SAT 98
[2023-11-08 16:29] LABS: Add Urine Microscopic? YES
[2023-11-08 18:25] VITALS: BP 137/74; PULSE 69; RESP 18; TEMP 36.8; O2SAT 96
[2023-11-08 18:30] LABS: Glucose Point of Care 269 mg/dl (65-105)
[2023-11-08 19:32] VITALS: BP 158/66; PULSE 71; RESP 15; O2SAT 97
[2023-11-08] MEDS: ONDANSETRON INJ 4 MG/2 ML VIAL IV PUSH (19:33)
[2023-11-08] MEDS: MORPHINE SULFATE (*CRX) 4 MG/ML INJ IV PUSH (19:33)
[2023-11-08] MEDS: SODIUM CHLORIDE 0.9% IV 1,000 ML 999 ML IV CONT (19:33)
--- NOTE | 2023-11-08 19:44 | ED.GENADULT ---
HPI - General Adult General Chief complaint: Recheck/Abnormal Lab/Rx Stated complaint: lesion on kidney- from CT Time Seen by Provider: 11/08/23 19:07 History of Present Illness HPI narrative: Patient 58-year-old female who presents emergency department with chief complaint of right flank pain. Patient reports he has been having pain for the last several days star primary care provider he did a outpatient noncontrast and CT scan. The outpatient CT scan showed a 1.3 cm hypoattenuating lesion in the lateral mid right kidney Related Data Allergies Allergy/AdvReac Type Severity Reaction Status Date / Time metformin Allergy Intermediate Other Verified 11/08/23 13:33 Penicillins Allergy Intermediate Hives Verified 11/08/23 13:33 sitagliptin Allergy Intermediate Rash Verified 11/08/23 13:33 pistachio nut Allergy Anaphylaxis Verified 11/08/23 13:33 empagliflozin AdvReac Mild Diarrhea Verified 11/08/23 13:33 [From Jardiance] Review of Systems Review of Systems: A 10 system review of systems was completed on the patient and is negative except for what is stated in the HPI. Nursing and ancillary documentation was reviewed. [facility] Past Medical History Medical History Hyperlipidemia Hypertension Major depressive disorder Obesity Type 2 diabetes mellitus Surgical History Surgical History H/O excision of dermoid cyst exc 1.5cm rt breast cyst performed 05/28/23 H/O lateral meniscus repair of left knee H/O: hysterectomy History of appendectomy History of hernia repair History of knee replacement Right History of total left knee replacement Social History Social History Social History: Caffeine- diet coke,nicholas Smoking status: Never smoker Alcohol intake: never Lack of Transportation: No Lack of Food: Never True Current Housing: I Have Housing Concerned About Future Housing: No Difficulty Paying Gas/Electric Bills: No Difficulty Paying for Meds: No Currently Unemployed: No Education: High School Diploma/GED Difficulty w/ Childcare or Family Care: No Living arrangements: with family Spiritual care concerns: No Exam Narrative: GENERAL: Well-appearing, well-nourished, and in no acute distress. HEAD: Normocephalic, atraumatic. EYES: PERRLA and EOMI. ENT: Nares clear, no rhinorrhea or epistaxis. Mucous membranes moist. NECK: Supple. CHEST: Clear to auscultation. No respiratory distress. HEART: Regular rate and rhythm. No murmur heard. Normal peripheral pulses. ABDOMEN: Soft, nontender, nondistended, normal active bowel sounds. EXTREMITIES: Normal range of motion. No edema. SKIN: Warm, dry, no rash. NEURO: No focal deficits. Alert and oriented x3. PSYCH: Normal mood and affect. Course Vital Signs Vital signs: Vital Signs Temperature 36.8 C 11/08/23 14:12 Pulse Rate 73 11/08/23 14:12 Respiratory Rate 16 11/08/23 14:12 Blood Pressure 148/72 H 11/08/23 14:12 Pulse Oximetry 95 11/08/23 14:12 Oxygen Delivery Room Air 11/08/23 14:12 Temperature 36.8 C 11/08/23 18:25 Pulse Rate 71 11/08/23 19:32 Respiratory Rate 15 11/08/23 19:32 Blood Pressure 158/66 H 11/08/23 19:32 Pulse Oximetry 97 11/08/23 19:32 Oxygen Delivery Room Air 11/08/23 14:12 Medical Decision Making MDM Narrative Medical decision making narrative: differential diagnosis includes renal tumor, simple status, UTI, pyelonephritis scan with IV contrast showed a simple renal cyst urinalysis was positive for UTI the patient was given a dose Rocephin in the ER the patient be discharged home on oral antibiotics Vital Signs Vital Signs: Vital Signs Temperature 36.8 C 11/08/23 14:12 Pulse Rate 73 11/08/23 14:12 Respiratory Rate 16 11/08/23 14:12 Blood Pressure 148/72
[2023-11-08 20:56] VITALS: BP 140/77; PULSE 69; RESP 15; O2SAT 97
== END 2023-11-08 22:44 | disposition home or self-care (01) ==
PROVIDERS: Emergency Medicine; Emergency Provider Emergency Medicine; PCP Internal Medicine
DX: N39.0 Urinary tract infection, site not specified (principal); N28.1 Cyst of kidney, acquired; R10.9 Unspecified abdominal pain; E78.5 Hyperlipidemia, unspecified; I10 Essential (primary) hypertension; E11.9 Type 2 diabetes mellitus without complications; E66.9 Obesity, unspecified; Z68.35 Body mass index [BMI] 35.0-35.9, adult; Z96.653 Presence of artificial knee joint, bilateral; Z90.710 Acquired absence of both cervix and uterus; Z79.85 Long-term (current) use of injectable non-insulin antidiabetic drugs; Z79.84 Long term (current) use of oral hypoglycemic drugs
CPT/HCPCS: 36415; 74176; 74177; 80053; 81001; 82948; 83690; 85025; 87086; 87088; 96361; 96365; 96375; 99284; J0696; J2270; J2405; J7030; Q9967

== ENCOUNTER 2023-11-15 11:53 | Outpatient (CLI) | payer OTHER, SELFPAY ==
--- NOTE | ~2023-11-15 | XR_ITS ---
XR thoracic spine 2V DATE: 11/15/2023 12:15 INDICATION: Mid to upper back pain. TECHNIQUE: AP, lateral, swimmer views COMPARISON: None FINDINGS: There is osteopenia. There is degenerative spurring particular at the mid and lower thoracic and upper lumbar spine. No fracture, dislocation or bone destruction. The thoracic pedicles are intact. No paraspinal soft ti ssue thickening. IMPRESSION: Osteopenia Degenerative spurring Reviewed, dictated and finalized at [facility]. 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
== END 2023-11-15 11:54 | disposition home or self-care (01) ==
LOC: ANHIMG 11:54
PROVIDERS: PCP Internal Medicine; Visit Provider Nurse Practitioner
DX: M85.88 Other specified disorders of bone density and structure, other site (principal); M46.04 Spinal enthesopathy, thoracic region; M46.06 Spinal enthesopathy, lumbar region
CPT/HCPCS: 72070

== ENCOUNTER 2024-01-08 09:20 | Outpatient (CLI) | payer OTHER, SELFPAY ==
[2024-01-08 20:05] LABS: Hemoglobin A1C 9.8 % (<5.7)
== END 2024-01-08 09:21 | disposition home or self-care (01) ==
LOC: ANHGOSHLAB 09:21
PROVIDERS: PCP Internal Medicine; Visit Provider Nurse Practitioner
DX: E11.9 Type 2 diabetes mellitus without complications (principal)
CPT/HCPCS: 36415; 83036

== ENCOUNTER 2025-05-07 15:06 | Emergency (ER) | payer OTHER, SELFPAY ==
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
[2025-05-07 15:07] VITALS: BP 142/63; PULSE 78; RESP 16; TEMP 36.4; O2SAT 97
--- OUTSIDE RECORDS SUMMARY | 2025-05-07 15:08 | XMS_ITS | Encounter Summary ---
Author Organization [facility] Healthcare Address [address] [place] [address] Care Team Providers Care Telephone Coin Box Collector Name Role Phone Sekou Ramos DO Primary Care Provider [phone]- [phone] Reason for Referral * Cardiology (Routine) - Pending Review Specialty Diagnoses / Procedures Referred By Delaney weber Referred To Contact Diagnoses History of cardiomyopathy Diastolic dysfunction Procedures Transthoracic Echo (TTE) Complete W Doppler/CF Navarro Sow MD [address] [place] [address] Phone: tel: fax: [facility] Cardiology [address] [place] [phone] Phone: tel: fax: Referral ID Status Reason Start Date Expiration Date V isits Requested Visits Authorized [id number] Pending Review 05/06/2025 06/05/2026 1 1 Reason for Visit * Reason Comments new pt H/o heart attack, L leaky heart valve Encounter Details Date Type Department Care Team (Latest Contact Info) Description 05/06/2025 8:45 AM CDT Office Visit [facility] Cardiology [address] [place] [phone] Navarro Sow MD [address] [place] [address] History of cardiomyopathy (Primary Dx); Diastolic dysfunction; Nonrheumatic aortic valve insufficiency; Hypertension associated with type 2 diabetes mellitus (HCC); ALFONSO on CPAP; Lipid screening Social History Tobacco Use Types Packs/Day Years Used Date Smoking Tobacco: Never Assessed Comments Unknown Sex and Gender Information Value Date Recorded Sex Assigned at Not on file 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 Gender Identity Not on file Sexual Orientation Not on file documented as of this encounter Last Filed Vital Signs Vital Sign Reading Time Taken Comments Blood Pressure 122/78 05/06/2025 8:50 AM CDT Pulse 77 05/06/2025 8:50 AM CDT Temperature - - Respiratory Rate - - Oxygen Saturation 98% 05/06/2025 8:50 AM CDT Inhaled Oxygen Concentration - - Weight 91.6 kg (202 lb) 05/06/2025 8:50 AM CDT Height 170.2 cm (5' 7) 05/06/2025 8:50 AM CDT Body Mass Index 31.64 05/06/2025 8:50 AM CDT documented in this encounter Ordered Prescriptions Prescription Sig Dispense Quantity Refills Last Filled Start Date End Date rosuvastatin (CRESTOR) 20 mg tablet Take 1 tablet (20 mg total) by mouth daily 90 tablet 6 05/06/2025 05/06/2026 documented in this encounter Progress Notes * Navarro Sow MD - 05/06/2025 8:45 AM CDT [facility] CARD[facility]OLOG[facility] 05/06/2025 CHIEF COMPLAINT Cardiovascular care HPI Helen Luke is a 60 y.o. female with history of nonischemic cardiomyopathy with normalization of LVEF over time; aortic regurgitation, hypertension, type 2 diabetes mellitus, dyslipidemia obesity,, ALFONSO on CPAP. 05/06/2025-patient is here for cardiovascular evaluation and management. She used to see a book jogger with [facility] heart and vascular, and is changing book jogger due to insurance reasons. Based on the medical records available, patient was diagnosed with nonischemic cardiomyopathy with LVEF 25%. Coronary angiogram reportedly did not show obstructive CAD. Patient reportedly had external variable defibrillator which was later discontinued after repeat imaging showed normalization of LV systolic function. At present, patient denies dyspnea on exertion. She has occasional chest discomfort, not related toexertion. Occasional dizziness without syncope. No palpitation. No PND, orthopnea lower extremity swelling. Patient reports compliance with current medical regimen. She gives history of intolerance to SGLT2 inhibitor in the form of genital yeast infection. She reports compliance with CPAP for ALFONSO. Patient is a nonsmoker. MEDICAL HISTORY nonischemic cardiomyopathy with normalization of LVEF over time; hypertension, type 2 diabetes mellitus, dyslipidemia No major cardiac surgery. she Allergies Allergen Reactions Sitagliptin Rash Empagliflozin Rash Metformin Unknown Penicillin Rash Rash fevers Current Outpatient Medications Medication Sig Dispense Refill baclofen (LIORESAL) 10 mg tablet Take 1 tablet (10 mg total) by mouth 2 (two) times a day glimepiride (AMARYL) 4 mg tablet Take 1 tablet (4 mg total) by mouth 2 (two) times a day labetaloL (NORMODYNE,TRANDATE) 100 mg tablet Take 1 tablet (100 mg total) by mouth 2 (two) times a day lisinopriL (PRINIVIL,ZESTRIL) 40 mg tablet Take 1 tablet (40 mg total) by mouth daily sertraline (ZOLOFT) 100 mg tablet Take 1 tablet (100 mg total) by mouth daily Trulicity 0.75 mg/0.5 mL pen injector Inject 0.5 mL (0.75 mg total) under the skin once a week rosuvastatin (CRESTOR) 20 mg tablet Take 1 tablet (20 mg total) by mouth daily 90 tablet 6 No current facility-administered medications for this visit. FH- pt adopted, does not know much about biological parents. Social history-patient denies tobacco, excessive alcohol or illicit drugs. She works at [employer]. Lives with a friend. REVIEW OF SYSTEMS General ROS: negative for - Fever, chills, fatigue Psychological ROS: negative for - anxiety, depression Ophthalmic ROS: negative for - loss of vision ENT ROS: negative for - sore throat, epistaxis, headaches, nasal congestion Allergy and Immunology ROS: negative for - hives, postnasal drip Hematological and Lymphatic ROS: negative for - overt bleeding problems, bruising Respiratory ROS: negative for - cough, hemoptysis, wheezing Cardiovascular ROS: Occasional nonexertional chest pain; no dyspnea. Gastrointestinal ROS: negative for - abdominal pain, nausea/vomiting, hematemesis, blood in the stool Endocrine ROS: negative for - hot flashes, polydipsia/polyuria Musculoskeletal ROS: negative for - joint pain, muscle pain Neurological ROS: negative for - gait disturbance, weakness Dermatological ROS: negative for pruritus, rash LABS AND OTHER DIAGNOSTIC TESTS REVIEWED No results found for: WBC, HGB, HCT, MCV, PLT No lab exists for component: LABALBU No results found for: WBC, HGB, HCT, MCV, PLT No results found for: CHOL No results found for: HDL No results found for: LDL] No results found for: TRIG Lab Results Component Value Date POCCHOL 138 05/06/2025 POCHDL 44 05/06/2025 POCTRIG 100 05/06/2025 POCLDL 73 05/06/2025 POCNONHDL 93 05/06/2025 POCCHLPL 138 05/06/2025 24 hour Holter monitor-Sinus rhythm with an average heart rate of 68 beats per minute and a range of heart rates of 45 to 107 beats per minute. Rare PACs. No significant runs or pauses. Symptoms of palpitations, lightheadedness and weakness associated with sinus rhythm with heart rates ranging from60 to 80 beats per minute. 02/08/2012;[facility] Carotid duplex-Less than 50% stenosis of the internal carotid arteries bilaterally. Minor bilateralcarotid plaque. 02/08/2012;[facility] Echo-normal LV size, moderate LVH, LVEF 65%, impaired LV relaxation. Mild aortic valve sclerosis, mild aortic regurgitation, no stenosis. 02/01/2024; [facility] heart and vascular Equilibrium radionuclide angiocardiography (JUN)-LVEF 65%. [facility] heart and vascular; 06/06/2024 EKG-sinus rhythm, nonspecific IVCD. 05/06/2025 Lipids-total cholesterol 138, HDL 44, triglycerides 100, LDL 73, glucose 326. 05/06/2025 PHYSICAL EXAM Vitals BP 122/78 (BP Location: Right arm, Patient Position: Sitting) Pulse 77 Ht 170.2 cm (5' 7) Wt 91.6 kg (202 lb) SpO2 98% BMI 31.64 kg/m?? General appearance -obese, alert, no distress, oriented to time, place, person Mental status - affect appropriate to mood Eyes - extraocular eye movements intact, no pallor Ears - external ears appear normal, hearing grossly normal Nose - normal and patent, no discharge Mouth - mucous membranes moist, tongue normal Neck - supple, no JVD Chest - clear to auscultation Heart - normal rate, regular rhythm, normal S1, S2, soft diastolic murmur Abdomen - soft, nontender Neurological - alert, oriented, normal speech, no gross motor deficits Musculoskeletal - no major deformity, no amputations Extremities - no pedal edema, no clubbing or cyanosis Skin - no rashes (on the exposed areas), no cyanosis ASSESSMENT Diagnoses and all orders for this visit: History of cardiomyopathy (Primary) - ECG 12 lead - Transthoracic Echo (TTE) Complete W Doppler/CF; Future Diastolic dysfunction - Transthoracic Echo (TTE) Complete W Doppler/CF; Future Nonrheumatic aortic valve insufficiency Hypertension associated with type 2 diabetes mellitus (HCC) ALFONSO on CPAP Lipid screening - POCT lipid panel Other orders - rosuvastatin (CRESTOR) 20 mg tablet; Take 1 tablet (20 mg total) by mouth daily PLAN/RECOMMENDATIONS 60 y.o. female with history of nonischemic cardiomyopathy with normalization of LVEF over time; aortic regurgitation, hypertension, type 2 diabetes mellitus, dyslipidemia obesity,, ALFONSO on CPAP. -Patient with history of nonischemic cardiomyopathy with normalization of LVEF over time. Patient currently does not have any significant symptoms of dyspnea on exertion. Patient currently on lisinopril and labetalol. She gives history of intolerance to SGLT2 inhibitor in the form of genital yeast infection. Repeat echo with Doppler to reassess LV function and rule out progression of aortic regurgitation. -Patient gives history of occasional chest discomfort, not related to exertion. She reportedly had cardiac catheterization done at outside facility which reportedly did not show obstructive CAD. Patient was advised to get the cath report. Continue to monitor for now. -Blood pressure is controlled with lisinopril, labetalol. Target blood pressure less than 130/80 mmHg. Adhere to low-salt diet. Regular aerobic exercise. -Change simvastatin to rosuvastatin since simvastatin tends to have more drug interactions. -CPAP for ALFONSO. -Management of other medical problems as per primary care physician. -Personally reviewed patient's extensive medical records including medical records from outside. -Counseling was done for heart healthy diet, aerobic exercise at least 5 times a week, Medication compliance. Weight reduction. -Follow up in 12-14 months or sooner if necessary based on clinical course. Navarro Sow MD 05/06/25 Voice recognition software was used to complete this document, therefore, humanities and languages professor variances may occur. documented in this encounter Plan of Treatment Scheduled Orders Name Type Priority Associated Diagnoses Orde r Schedule Transthoracic Echo (TTE) Complete W Doppler/CF Echocardiography Routine History of cardiomyopathy Diastolic dysfunction Expected: 06/24/2025, Expires: 05/06/2026 documented as of this encounter Procedures Procedure Name Priority Date/Time Associated Diagnosis Comments POCT LIPID PANEL Routine 05/06/2025 8:44 AM CDT Lipid screening ECG 12-LEAD Routine 05/06/2025 8:36 AM CDT History of cardiomyopathy documented in this encounter Results * POCT lipid panel (05/06/2025 8:44 AM CDT) Cholesterol, POC 138 <200 MG/DL HDL, POC 44 >=40 mg/dL Triglycerides, POC 100 <=149 mg/dL LDL Cholesterol POC 73 <=129 mg/dL Chol/HDL Ratio, POC 1.7 NONE Non-HDL Cholesterol, POC 93 NONE mg/dL Cholesterol Total, POC 138 30 - 199 mg/dL Capillary blood 05/06/2025 8 :44 AM CDT us Navarro Sow MD POINT OF CARE TEST ORDERABLES Fi nal Result * ECG 12 lead (05/06/2025 8:36 AM CDT) 05/06/2025 8:36 AM CDT us Navarro Sow MD ECG ORDERABLES Edited Result - Final documented in this encounter Visit Diagnoses Diagnosis History of cardiomyopathy- Primary Personal history of other diseases of circulatory system Diastolic dysfunction Unspecified heart disease Nonrheumatic aortic valve insufficiency Hypertension associated with type 2 diabetes mellitus (HCC) ALFONSO on CPAP Lipid screening Screening for lipoid disorders documented in this encounter Discontinued Medications Medication Sig Discontinue Reason Start Date End Da te simvastatin (ZOCOR) 40 mg tablet Take 1 tablet (40 mg total) by mouth daily Alternate therapy 05/06/2025 documented as of this encounter Care Teams Telephone Coin Box Collector Relationship Specialty Start Date End Date Sekou Ramos DO PCP - General Internal Medicine 11/13/23 documented as of this encounter
--- OUTSIDE RECORDS SUMMARY | 2025-05-07 15:08 | XMS_ITS | Clinical Summary ---
Author Organization [facility] Address [address] [place] [phone] Care Team Providers Care Digging Machine Operator Name Role Phone Sekou Ramos DO Primary Care Provider [phone]- [phone] Allergies Active Allergy Reactions Criticality Noted Date Comments Empagliflozin Rash Medium 08/01/2022 Metformin Unknown Medium 08/01/2022 Penicillin Rash Medium 11/20/2023 Rash fevers Sitagliptin Rash High 08/01/2022 Medications baclofen (LIORESAL) 10 mg tablet Take 1 tablet (10 mg total) by mouth 2 (two) times a day 4 Active Trulicity 0.75 mg/0.5 mL pen injector Inject 0.5 mL (0.75 mg total) under the skin once a week 4 Active labetaloL (NORMODYNE,DRAPER DATE) 100 mg tablet Take 1 tablet (100 mg total) by mouth 2 (two) times a day Active lisinopriL (PRINIVIL,ZESTR [place]) 40 mg tablet Take 1 tablet (40 mg total) by mouth daily Active glimepiride (AMARYL) 4 mg tablet Take 1 tablet (4 mg total) by mouth 2 (two) times a day 3 Active sertraline (ZOLOFT) 100 mg tablet Take 1 tablet (100 mg total) by mouth daily Active rosuvastatin (CRESTOR) 20 mg tablet Take 1 tablet (20 mg total) by mouth daily 90 tablet 6 5 05/06/20 26 Active aspirin 81 mg chewable tablet CHEW AND SWALLOW 1 TABLET BY MOUTH EVERY DAY 90 tablet 6 5 Active simvastatin (ZOCOR) 40 mg tablet Take 1 tablet (40 mg total) by mouth daily 05/06/20 25 Discontinu ed(Alterna te therapy) Active Problems No known active problems Encounters Date Type Department Care Team Description 05/06/2025 8:45 AM CDT Office Visit [facility] Cardiology [address] [place] [address] Navarro Sow MD History of cardiomyopathy (Primary Dx); Diastolic dysfunction; Nonrheumatic aortic valve insufficiency; Hypertension associated with type 2 diabetes mellitus (HCC); ALFONSO on CPAP; Lipid screening from Last 3 Months Social History Tobacco Use Types Packs/Day Years Used Date Smoking Tobacco: Never Assessed Comments Unknown Sex and Gender Information Value Date Recorded Sex Assigned at Not on file 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 Gender Identity Not on file Sexual Orientation Not on file Obstetrics History Last Filed Vital Signs Vital Sign Reading [...] Mass Index 31.64 05/06/2025 8:50 AM CDT Plan of Treatment Health Maintenance Due Date Last Done Comments Albumin Creatinine Ratio, Urine 1966 Breast Cancer Screening-Mammogram 1966 Cervical Cancer Screening 1966 Colon Cancer Screening-Colonoscopy 1966 Depression Screening 1966 Hemoglobin A1C 1966 Hepatitis C Screening 1966 eGFR 1966 Dilated Eye Exam 1966 Foot Exam 1966 Hepatitis B Screening 1984 Regular Well Visit/Exam 18-64 1984 Pneumococcal vaccine <65 (1 of 2 - PCV) 1985 Zoster Vaccine (1 of 2) 2016 Covid-19 Vaccine (4 - 2024-25 season) 2024 11/09/2021, 01/19/2021, 12/23/2020 Influenza Vaccine (#1) 2025 4, 10/05/2012, 07/13/2011 Lipid Panel 05/06/2026 05/06/2025 DTaP/Tdap/Td Vaccine (3 - Td or Tdap) 05/15/2032, 08/27/2019 Procedures Procedure Name Priority Date/Time Associated Diagnosis Comments POCT LIPID PANEL Routine 05/06/2025 8:44 AM CDT Lipid screening ECG 12-LEAD Routine 05/06/2025 8:36 AM CDT History of cardiomyopathy from Last 3 Months Results * POCT lipid panel (05/06/2025 8:44 [...] MD ECG ORDERABLES Edited Result - Final from Last 3 Months Insurance [facility] Care Teams Digging Machine Operator Relationship Specialty Start Date End Date Sekou Ramos DO PCP - General Internal Medicine 11/13/23
--- OUTSIDE RECORDS SUMMARY | 2025-05-07 15:08 | XMS_ITS | Referral Summary ---
Author Organization [facility] Address [address] [place] [phone] Care Team Providers Care Welding Machine Operator Gas Metal Arc Name Role Phone Sekou Ramos DO Primary Care Provider +1- [phone] Encounters Date Type Department Care Team Description 05/06/2025 8:45 AM CDT Office Visit [facility] Medical [facility] Cardiology [address] [place] [address] Navarro Sow MD History of cardiomyopathy (Primary Dx); Diastolic dysfunction; Nonrheumatic aortic valve insufficiency; Hypertension associated with type 2 diabetes mellitus (HCC); ALFONSO on CPAP; Lipid screening from Last 3 Months Allergies Active Allergy Reactions Criticality Noted Date [...] therapy) Active Problems No known active problems Social History Tobacco Use Types Packs/Day Years Used Date Smoking Tobacco: Never Assessed Comments Unknown Sex and Gender Information Value Date Recorded Sex Assigned at Not on file 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
--- OUTSIDE RECORDS SUMMARY | 2025-05-07 15:08 | XMS_ITS | Clinical Summary ---
Author Organization [facility] Address [address] [place] [address] Care Team Providers Care Air Route Traffic Controller Name Role Phone Sekou Ramos DO Primary Care Provider [phone] [phone] Source Comments [facility],non-owned Affiliates and Associated Physician Practices is amultiple site organization consisting of ambulatory clinics and hospital sitesin [place], [place], [place] and [place]. This disclosure is being madepursuant to the Care Everywhere program and may not contain all information available regarding this patient. Last updated 18.[facility] [place] Allergies Active Allergy Reactions Criticality Noted Date Comments Sitagliptin Rash High 08/01/2022 Empagliflozin Rash Medium 08/01/2022 Metformin GI Discomfort Medium 08/01/2022 Penicillins Rash,Fever High 08/06/2018 Medications * Be aware that medications may not be up to date on this document. Alwaysverify current medications with the patient. hydroCHLOROthia zide (HYDRODIURIL) 25 MG tablet Take 1 tablet by mouth once daily 0 07/08/2018 Active labetalol (NORMODYNE; TRANDATE) 100 MG tablet Take 1 tablet by mouth 2 times daily 0 07/08/2018 Active lisinopril (PRINIVIL; ZESTRIL) 40 MG tablet Take 1 tablet by mouth once daily 2 07/07/2018 Active sertraline (ZOLOFT) 100 MG tablet Take 1 tablet by mouth once daily 3 07/07/2018 Active simvastatin (ZOCOR) 40 MG tablet Take 1 tablet by mouth at bedtime 2 07/07/2018 Active HYDROcodone-ahnna taminophen ([place]) 5-325 MG tablet Take 1 (one) tablet by mouth every 6 hours as needed for Pain 5 tablet 08/13/2022 Active Active Problems Problem Noted Date Diagnosed Date Arthritis of left knee 08/01/2022 Neoplasm of uncertain behavior of skin 8 Actinic keratoses 08/06/2018 Other rosacea 08/06/2018 Seborrheic keratoses 08/06/2018 Multiple benign nevi of uppe r and lower extremities, and trunk 08/06/2018 Lentigines 08/06/2018 Immunizations Immunization Administration Dates Next Due TDAP (7yrs+) 05/15/2022 Social History Tobacco Use Types Packs/Day Years Used Date Smoking Tobacco: Never Smokeless Tobacco: Never Alcohol Use Standard Drinks/Week Comments No 0 (1 standard drink = 0.6 oz pur e alcohol) Hunger Vital Sign Answer Date Recorded Within the past 12 months, y ou worried that your food would run out before you got the money to buy more. Never true 08/01/20 22 Within the past 12 months, t he food you bought just didn't last and you didn't have money to get more. Never true 08/01/2022 Comments No Sex and Gender Information Value Date Recorded Sex Assigned at Not on file Legal Sex Female 2:00 PM CDT Gender Identity Not on file Sexual Orientation Not on file Last Filed Vital Signs Vital Sign Reading Time Taken Comments Blood Pressure 158/75 08/13/2022 3:58 AM CDT Pulse 88 08/13/2022 3:58 AM CDT Temperature 37.3 C (99.2 F) 08/12/2022 11:03 PM CDT Respiratory Rate 13 08/13/2022 3:58 AM CDT Oxygen Saturation 94% 08/13/2022 3:21 AM CDT Inhaled Oxygen Concentration - - Weight 97.5 kg (215 lb) 08/12/2022 11:03 PM CDT Height 170.2 cm (5' 7) 08/12/2022 11:03 PM CDT Body Mass Index 33.67 08/12/2022 11:03 PM CDT Plan of Treatment Health Maintenance Due Date Last Done Comments COLOGUARD (AGES 45-75) - COL ON CA SCREENING 1966 COLON MONITORING 1966 COLONOSCOPY - COLON CA SCREENING 1966 CT COLONOGRAPHY - COLON CA SCREENING 1966 Colorectal Cancer Screening 1966 FIT - COLON CA SCREENING 1966 FLEX SIG - COLON CA SCREENING 1966 MAMMOGRAM 1966 HIV SCREENING 1981 HEPATITIS C SCREENING 03/24/1984 HEPATITIS B VACCINE (1 of 3 - 19+ 3-dose series) 1985 PAP SMEAR 1987 PNEUMOCOCCAL VACCINE 50+ (1 of 1 - PCV) 2016 ZOSTER VACCINE (1 of 2) 2016 COVID-19 VACCINE (4 - 2023-2 5 season) 2024 11/09/2021, 01/19/2021, 12/23/2020 DEPRESSION SCREENING 10/29/2024 INFLUENZA VACCINE (#1) 2025 4, 10/05/2012, 07/13/2011 DTAP/TDAP/TD VACCINES (2 - T d or Tdap) 05/15/2032 05/15/2022 HIB VACCINE Aged Out No longer eligi ble based on patient's age to complete this topic HPV VACCINE Aged Out No longer eligi ble based on patient's age to complete this topic MENINGOCOCCAL (Group B) VACCINE SHARED DECISION-MAKING Aged Out No longer eligible based on patient's age to complete this topic MENINGOCOCCAL GROUPS A/C/Y/W VACCINE Aged Out No longer eligible b ased on patient's age to complete this topic Medical Devices Implanted Type Area Convalescent Sitter Device Identifier Shelf Expiration Date Model / Serial / Lot Cmpnt Fem Kn Lt 4 Crcte Rtn Bead Trthln Implanted:Qty: 1 on 08/01/2022 by Derek Hills MD at [facility] Left: Knee [employer] 05/11/2027 [id number] / / [id number] Bsplt Tib Trthlm 4 Kn Tritanium Implanted:Qty: 1 on 08/01/2022 by Derek Hills MD at [facility] Left: Knee [employer] 05/17/2027 [id number] / / [id number] Ins Tib 4 9mm Kn X3 Crcte Sub Trthln Implanted:Qty: 1 on 08/01/2022 by Derek Hills MD at [facility] Left: Knee [employer] 05/21/2027 [id number] / / [id number] Cmpnt Ptlr S 31x9mm Tritanium Strl Lf Implanted:Qty: 1 on 08/01/2022 by Derek Hills MD at [facility] Left: Knee [employer] 06/06/2027 [id number] / / [id number] Insurance [id number] [place] [phone] [place] [address] COUNTS INCLUDE 234 BEDS AT THE [facility] PAYOR GENERIC PAYOR GENERIC ANTHEM PAYOR GENERIC Advance Directives * Full Code (Latest Code Status on File) Date Activated Date Inactivated Comments 08/01/2022 2:37 PM 08/02/2022 7:19 PM Care Teams Air Route Traffic Controller Relationship Specialty Start Date End Date Sekou Ramos DO PCP - General 05/07/18
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
--- OUTSIDE RECORDS SUMMARY | 2025-05-07 19:46 | XMS_ITS | Clinical Summary ---
Author Organization [facility] Address [address] [place] [address] Care Team Providers Care Special Education Preschool Teacher Name Role Phone Sekou Ramos DO Primary Care Provider [phone] Source Comments [facility],non-owned Affiliates and Associated Physician Practices is amultiple site organization consisting of ambulatory clinics and hospital sitesin [place], [place], [place]. This disclosure is being madepursuant to the Care Everywhere program and may not contain all information available regarding this patient. Last updated 18.[facility] [employer] Allergies Active Allergy Reactions Criticality Noted Date [...] by mouth at bedtime 2 07/07/2018 Active HYDROcodone-hanna taminophen ([place]) 5-325 MG tablet Take 1 (one) tablet [...] this topic Medical Devices Implanted Type Area Information Security Director Device Identifier Shelf Expiration Date Model / Serial / Lot Cmpnt Fem Kn Lt 4 Crcte Rtn Bead Trthln Implanted:Qty: 1 on 08/01/2022 by Derek Hills MD at [facility] Left: Knee [employer] 05/11/2027 [id number] / / [id number] Bsplt Tib Trthlm 4 Kn Tritanium Implanted:Qty: 1 on 08/01/2022 by Derek Hills MD at [facility] Left: Knee [employer] 05/17/2027 [id number] / / [id number] Ins Tib 4 9mm Kn X3 Crcte Sub Trthln Implanted:Qty: 1 on 08/01/2022 by Derek Hills MD at [facility] Left: Knee [employer] 05/21/2027 [id number] / / [id number] Cmpnt Ptlr S 31x9mm Tritanium Strl Lf Implanted:Qty: 1 on 08/01/2022 by Derek Hills MD at [facility] Left: Knee [employer] 06/06/2027 [id number] / / [id number] Insurance [id number] [place] [id number] [place] [address] [facility]LY [facility] PAYOR GENERIC PAYOR GENERIC ANTHEM PAYOR GENERIC Advance Directives * Full Code (Latest Code Status on File) Date Activated Date Inactivated Comments 08/01/2022 2:37 PM 08/02/2022 7:19 PM Care Teams Special Education Preschool Teacher Relationship Specialty Start Date End Date Sekou Ramos DO PCP - General 05/07/18
--- OUTSIDE RECORDS SUMMARY | 2025-05-07 19:46 | XMS_ITS | Clinical Summary ---
Author Organization [facility] Address [address] [place] [phone] Care Team Providers Care Social Worker Assistant Name Role Phone Sekou Ramos DO Primary Care Provider +1- [phone] Allergies Active Allergy Reactions Criticality Noted Date [...] Description 05/06/2025 8:45 AM CDT Office Visit [facility] Medical [facility] Cardiology [address] [place] [address] Navarro Sow MD History of [...] on file Legal Sex Female 8:23 AM ASPHALT TAMPER Gender Identity Not on file Sexual Orientation [...] - Final from Last 3 Months Insurance [facility] Care Teams Social Worker Assistant Relationship Specialty Start Date End Date Sekou Ramos DO PCP - General Internal Medicine 11/13/23
--- OUTSIDE RECORDS SUMMARY | 2025-05-07 19:46 | XMS_ITS | Referral Summary ---
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
[2025-05-07] MEDS: IBUPROFEN 600 MG TABLET PO (20:56)
[2025-05-07 20:59] VITALS: BP 151/89; PULSE 68; RESP 16; O2SAT 95
== END 2025-05-07 21:02 | disposition home or self-care (01) ==
PROVIDERS: Emergency Provider Emergency Medicine; PCP Nurse Practitioner
DX: G89.11 Acute pain due to trauma (principal); M25.512 Pain in left shoulder; V49.40XA Driver injured in collision with unspecified motor vehicles in traffic accident, initial encounter
CPT/HCPCS: 73030; 73080; 73200; 99284; A9270